=== PATIENT | male | born 1955 | race Two or more races ===

== ENCOUNTER → 2020-02-15 | Outpatient (CLI) | payer MEDICARE, BC | END | disposition home or self-care (01) | LOC: ECT 12:09 | DX: F33.2 Major depressive disorder, recurrent severe without psychotic features (principal); I10 Essential (primary) hypertension; E78.5 Hyperlipidemia, unspecified; K21.9 Gastro-esophageal reflux disease without esophagitis; Z79.899 Other long term (current) drug therapy ==

== ENCOUNTER 2020-03-10 06:00 | Outpatient (RCR) | payer MEDICARE, BC ==
[~2020-03-10] VITALS: Ht 180.3 cm; Wt 86.6 kg
[2020-03-10] VITALS (7 sets, daily range): BP systolic 129–175; BP diastolic 71–87
[2020-03-10] MEDS ORDERED: Ketorolac 30mg Inj ONE (06:01)
[2020-03-10] MEDS ORDERED: Succinylcholine 20mg/ml 10ml vial ONE (06:01)
[2020-03-10] MEDS ORDERED: Methohexital Sodium Syr 100mg/10ml IVP ONE (06:01)
[2020-03-10] MEDS ORDERED: NS 500ML ONE (06:01)
[2020-03-12] VITALS (7 sets, daily range): BP systolic 132–148; BP diastolic 72–98
[2020-03-12] MEDS ORDERED: Succinylcholine 20mg/ml 10ml vial ONE (09:00)
[2020-03-12] MEDS ORDERED: NS 500ML ONE (09:00)
[2020-03-12] MEDS ORDERED: Methohexital Sodium Syr 100mg/10ml IVP ONE (09:00)
[2020-03-12] MEDS ORDERED: Ketorolac 60mg Inj IM ONE (09:00)
[2020-03-14] VITALS (7 sets, daily range): BP systolic 133–149; BP diastolic 81–99
[2020-03-14] MEDS ORDERED: Ketorolac 60mg Inj IM ONE (06:00)
[2020-03-14] MEDS ORDERED: NS 500ML ONE (06:00)
[2020-03-14] MEDS ORDERED: Succinylcholine 20mg/ml 10ml vial ONE (06:00)
[2020-03-14] MEDS ORDERED: Methohexital Sodium Syr 100mg/10ml IVP ONE (06:00)
[2020-03-17] VITALS (7 sets, daily range): BP systolic 128–149; BP diastolic 81–96
[2020-03-17] MEDS ORDERED: NS 500ML ONE (06:00)
[2020-03-17] MEDS ORDERED: Methohexital Sodium Syr 100mg/10ml IVP ONE (06:00)
[2020-03-17] MEDS ORDERED: Succinylcholine 20mg/ml 10ml vial ONE (06:00)
[2020-03-17] MEDS ORDERED: Ketorolac 30mg Inj ONE (06:00)
[2020-03-19] VITALS (7 sets, daily range): BP systolic 125–141; BP diastolic 74–91
[2020-03-19] MEDS ORDERED: Methohexital Sodium Syr 100mg/10ml IVP ONE (07:00)
[2020-03-19] MEDS ORDERED: NS 500ML ONE (07:00)
[2020-03-19] MEDS ORDERED: Ketorolac 60mg Inj IM ONE (07:00)
[2020-03-19] MEDS ORDERED: Succinylcholine 20mg/ml 10ml vial ONE (07:00)
[2020-03-19] MEDS ORDERED: Atropine Sulfate 0.4mg/ml inj IVP PRN (10:09)
[2020-03-21] VITALS (7 sets, daily range): BP systolic 129–144; BP diastolic 77–91
[2020-03-21] MEDS ORDERED: Succinylcholine 20mg/ml 10ml vial ONE (07:00)
[2020-03-21] MEDS ORDERED: Methohexital Sodium Syr 100mg/10ml IVP ONE (07:00)
[2020-03-21] MEDS ORDERED: NS 500ML ONE (07:00)
[2020-03-21] MEDS ORDERED: Ketorolac 60mg Inj IM ONE (07:00)
== END 2020-03-22 | disposition home or self-care (01) ==
LOC: ECT 06:00
DX: F33.2 Major depressive disorder, recurrent severe without psychotic features (principal); F22 Delusional disorders; I10 Essential (primary) hypertension; E78.5 Hyperlipidemia, unspecified; N40.0 Benign prostatic hyperplasia without lower urinary tract symptoms; K21.9 Gastro-esophageal reflux disease without esophagitis
CPT/HCPCS: 90870; J0330; J1885; J7040

== ENCOUNTER 2020-03-24 06:55 | Outpatient (RCR) | payer MEDICARE, BC ==
[2020-03-24] VITALS (7 sets, daily range): BP systolic 118–145; BP diastolic 67–82
[~2020-03-24] VITALS: Ht 180.3 cm; Wt 86.6 kg
[2020-03-24] MEDS ORDERED: NS 500ML ONE (06:56)
[2020-03-24] MEDS ORDERED: Etomidate 40mg/20ml Inj IV ONE (06:56)
[2020-03-24] MEDS ORDERED: Succinylcholine 20mg/ml 10ml vial ONE (06:56)
[2020-03-24] MEDS ORDERED: Ketorolac 60mg Inj IM ONE (06:56)
[2020-03-24] MEDS ORDERED: Etomidate 40mg/20ml Inj IV SCH (11:19)
[2020-03-26] VITALS (7 sets, daily range): BP systolic 138–154; BP diastolic 79–93
[2020-03-26] MEDS ORDERED: NS 500ML ONE (06:00)
[2020-03-26] MEDS ORDERED: Succinylcholine 20mg/ml 10ml vial ONE (06:00)
[2020-03-26] MEDS ORDERED: Etomidate 40mg/20ml Inj IV ONE ×2 (06:00→11:25)
[2020-03-26] MEDS ORDERED: Ketorolac 30mg Inj ONE (06:00)
[2020-03-28] VITALS (7 sets, daily range): BP systolic 130–151; BP diastolic 73–92
[2020-03-28] MEDS ORDERED: NS 500ML ONE (09:00)
[2020-03-28] MEDS ORDERED: Ketorolac 60mg Inj IM ONE (09:00)
[2020-03-28] MEDS ORDERED: Etomidate 40mg/20ml Inj IV ONE ×2 (09:00→10:16)
[2020-03-28] MEDS ORDERED: Succinylcholine 20mg/ml 10ml vial ONE (09:00)
[2020-03-31] VITALS (7 sets, daily range): BP systolic 149–173; BP diastolic 86–94
[2020-03-31] MEDS ORDERED: Ketamine 500mg/10ml vial ONE (06:00)
[2020-03-31] MEDS ORDERED: NS 500ML ONE (06:00)
[2020-03-31] MEDS ORDERED: Succinylcholine 20mg/ml 10ml vial ONE (06:00)
[2020-03-31] MEDS ORDERED: Ketorolac 30mg Inj ONE (06:00)
[2020-04-02] VITALS (7 sets, daily range): BP systolic 154–173; BP diastolic 86–97
[2020-04-02] MEDS ORDERED: Ketamine 500mg/10ml vial ONE (06:00)
[2020-04-02] MEDS ORDERED: Ketorolac 30mg Inj ONE (06:00)
[2020-04-02] MEDS ORDERED: Midazolam 2mg/2ml Inj ONE (06:00)
[2020-04-02] MEDS ORDERED: NS 500ML ONE (06:00)
[2020-04-02] MEDS ORDERED: Succinylcholine 20mg/ml 10ml vial ONE (06:00)
[2020-04-02] MEDS ORDERED: Atropine Sulfate 0.4mg/ml inj IVP PRN (11:34)
[2020-04-09] VITALS (7 sets, daily range): BP systolic 143–167; BP diastolic 87–100
[2020-04-09] MEDS ORDERED: Midazolam 2mg/2ml Inj ONE (06:00)
[2020-04-09] MEDS ORDERED: Succinylcholine 20mg/ml 10ml vial ONE (06:00)
[2020-04-09] MEDS ORDERED: NS 500ML ONE (06:00)
[2020-04-09] MEDS ORDERED: Ketamine 500mg/10ml vial ONE (06:00)
[2020-04-09] MEDS ORDERED: Ketorolac 30mg Inj ONE (06:00)
[2020-04-11] VITALS (7 sets, daily range): BP systolic 144–163; BP diastolic 83–97
[2020-04-11] MEDS ORDERED: Succinylcholine 20mg/ml 10ml vial ONE (06:00)
[2020-04-11] MEDS ORDERED: Midazolam 2mg/2ml Inj ONE (06:00)
[2020-04-11] MEDS ORDERED: NS 500ML ONE (06:00)
[2020-04-11] MEDS ORDERED: Ketamine 500mg/10ml vial ONE (06:00)
[2020-04-11] MEDS ORDERED: Ketorolac 60mg Inj IM ONE (06:00)
[2020-04-14] VITALS (7 sets, daily range): BP systolic 132–170; BP diastolic 74–89
[2020-04-14] MEDS ORDERED: Ketorolac 60mg Inj IM ONE (09:00)
[2020-04-14] MEDS ORDERED: Ketamine 500mg/10ml vial ONE (09:00)
[2020-04-14] MEDS ORDERED: NS 500ML ONE (09:00)
[2020-04-14] MEDS ORDERED: Succinylcholine 20mg/ml 10ml vial ONE (09:00)
[2020-04-14] MEDS ORDERED: Midazolam 2mg/2ml Inj ONE (09:00)
[2020-04-16] VITALS (7 sets, daily range): BP systolic 141–156; BP diastolic 76–91
[2020-04-16] MEDS ORDERED: Succinylcholine 20mg/ml 10ml vial ONE (06:00)
[2020-04-16] MEDS ORDERED: Midazolam 2mg/2ml Inj ONE (06:00)
[2020-04-16] MEDS ORDERED: NS 500ML ONE (06:00)
[2020-04-16] MEDS ORDERED: Ketamine 500mg/10ml vial ONE (06:00)
[2020-04-16] MEDS ORDERED: Ketorolac 60mg Inj IM ONE (06:00)
[2020-04-16] MEDS ORDERED: Atropine Sulfate 0.4mg/ml inj IVP PRN (12:29)
[2020-04-18] VITALS (7 sets, daily range): BP systolic 151–172; BP diastolic 76–101
[2020-04-18] MEDS ORDERED: Succinylcholine 20mg/ml 10ml vial ONE (06:00)
[2020-04-18] MEDS ORDERED: Midazolam 2mg/2ml Inj ONE (06:00)
[2020-04-18] MEDS ORDERED: Ketorolac 60mg Inj IM ONE (06:00)
[2020-04-18] MEDS ORDERED: NS 500ML ONE (06:00)
[2020-04-18] MEDS ORDERED: Ketamine 500mg/10ml vial ONE (06:00)
[2020-04-21] VITALS (7 sets, daily range): BP systolic 155–166; BP diastolic 87–97
[2020-04-21] MEDS ORDERED: Ketamine 500mg/10ml vial ONE (08:45)
[2020-04-21] MEDS ORDERED: Succinylcholine 20mg/ml 10ml vial ONE (08:45)
[2020-04-21] MEDS ORDERED: Midazolam 2mg/2ml Inj ONE (08:45)
[2020-04-21] MEDS ORDERED: Ketorolac 60mg Inj IM ONE (08:45)
[2020-04-21] MEDS ORDERED: NS 500ML ONE (08:45)
[2020-04-21] MEDS ORDERED: Atropine Sulfate 0.4mg/ml inj IVP PRN (10:24)
== END 2020-04-21 | disposition home or self-care (01) ==
LOC: ECT 06:55
DX: F33.2 Major depressive disorder, recurrent severe without psychotic features (principal)
CPT/HCPCS: 90870; J0330; J1885; J2250; J2405; J3490; J7040

== ENCOUNTER 2020-04-25 07:02 | Outpatient (RCR) | payer MEDICARE, BC ==
[2020-04-25] VITALS (7 sets, daily range): BP systolic 150–163; BP diastolic 80–104
[~2020-04-25] VITALS: Ht 180.3 cm; Wt 86.6 kg
[2020-04-25] MEDS ORDERED: Methohexita Syr 100mg/10ml IVP ONE (07:03)
[2020-04-25] MEDS ORDERED: Succinylcholine 20mg/ml 10ml vial ONE (07:03)
[2020-04-25] MEDS ORDERED: Ketorolac 60mg Inj IM ONE (07:03)
[2020-04-25] MEDS ORDERED: Midazolam 2mg/2ml Inj ONE (07:03)
[2020-04-25] MEDS ORDERED: NS 500ML ONE (07:03)
[2020-04-30] VITALS (7 sets, daily range): BP systolic 145–168; BP diastolic 82–107
[2020-04-30] MEDS ORDERED: Midazolam 2mg/2ml Inj ONE (09:00)
[2020-04-30] MEDS ORDERED: NS 500ML ONE (09:00)
[2020-04-30] MEDS ORDERED: Succinylcholine 20mg/ml 10ml vial ONE (09:00)
[2020-04-30] MEDS ORDERED: Etomidate 40mg/20ml Inj IV ONE (09:00)
[2020-04-30] MEDS ORDERED: Ketorolac 60mg Inj IM ONE (09:00)
== END 2020-05-22 | disposition home or self-care (01) ==
LOC: ECT 07:02
DX: F33.2 Major depressive disorder, recurrent severe without psychotic features (principal)
CPT/HCPCS: 90870; J0330; J2250; J2405; J7040